=== PATIENT | female | born 1940 | race Caucasian/White ===

== ENCOUNTER → 2020-09-13 | Outpatient (CLI) | payer OTHER ==
[~2020-09-13] MED LIST: BACTROBAN NASAL1 G1 TOP; CLONIDINE1 EAC1 TD; DIGOXIN125 MCG PO; ECOTRIN81 MG PO; ELIQUIS5 MG PO; FAMOTIDINE20 MG PO; KEFLEX CAP 500500 MG PO; LEVAQUIN I500 MG/100 IV; LIPITOR80 MG PO; LISINOPRIL20 MG PO; LOPRESSOR 25 MG25 MG PO; LOPRESSOR 50 MG50 MG PO; METFORMIN HCL500 M2 PO; METOPROLOL TAR100 MG PO; ULTRAM50 MG PO; ZYVOX600 MG PO
== END ==
LOC: WCC 12:54
PROC: 0JBN0ZZ Excision of Right Lower Leg Subcutaneous Tissue and Fascia, Open Approach (ICD-10-PCS; principal; 2020-09-13)
DX: E11.622 Type 2 diabetes mellitus with other skin ulcer (principal); L97.812 Non-pressure chronic ulcer of other part of right lower leg with fat layer exposed; E11.628 Type 2 diabetes mellitus with other skin complications; L03.115 Cellulitis of right lower limb; E11.52 Type 2 diabetes mellitus with diabetic peripheral angiopathy with gangrene; I96 Gangrene, not elsewhere classified; I10 Essential (primary) hypertension; E66.01 Morbid (severe) obesity due to excess calories; I48.20 Chronic atrial fibrillation, unspecified; E11.36 Type 2 diabetes mellitus with diabetic cataract; H26.9 Unspecified cataract; J44.9 Chronic obstructive pulmonary disease, unspecified; M19.90 Unspecified osteoarthritis, unspecified site; I87.2 Venous insufficiency (chronic) (peripheral); Z68.26 Body mass index [BMI] 26.0-26.9, adult; Z79.2 Long term (current) use of antibiotics; Z79.4 Long term (current) use of insulin; Z79.899 Other long term (current) drug therapy
CPT/HCPCS: G0463

== ENCOUNTER → 2020-09-18 | Outpatient (CLI) | payer OTHER | LOC: WCC 09:00 | PROC: 0JBN0ZZ Excision of Right Lower Leg Subcutaneous Tissue and Fascia, Open Approach (ICD-10-PCS; principal; 2020-09-18) | DX: E11.628 Type 2 diabetes mellitus with other skin complications (principal); I10 Essential (primary) hypertension; L03.115 Cellulitis of right lower limb; E66.01 Morbid (severe) obesity due to excess calories; I48.20 Chronic atrial fibrillation, unspecified; I87.2 Venous insufficiency (chronic) (peripheral); Z79.4 Long term (current) use of insulin; Z79.899 Other long term (current) drug therapy; Z68.26 Body mass index [BMI] 26.0-26.9, adult ==

== ENCOUNTER → 2020-09-26 | Outpatient (CLI) | payer OTHER | LOC: WCC 10:30 | PROC: 0JBN0ZZ Excision of Right Lower Leg Subcutaneous Tissue and Fascia, Open Approach (ICD-10-PCS; principal; 2020-09-26) | DX: E11.622 Type 2 diabetes mellitus with other skin ulcer (principal); L97.812 Non-pressure chronic ulcer of other part of right lower leg with fat layer exposed; L97.829 Non-pressure chronic ulcer of other part of left lower leg with unspecified severity; E11.628 Type 2 diabetes mellitus with other skin complications; L03.115 Cellulitis of right lower limb; E11.52 Type 2 diabetes mellitus with diabetic peripheral angiopathy with gangrene; I96 Gangrene, not elsewhere classified; I10 Essential (primary) hypertension; I48.20 Chronic atrial fibrillation, unspecified; E11.36 Type 2 diabetes mellitus with diabetic cataract; H26.9 Unspecified cataract; J44.9 Chronic obstructive pulmonary disease, unspecified; M19.90 Unspecified osteoarthritis, unspecified site; I87.2 Venous insufficiency (chronic) (peripheral); E66.01 Morbid (severe) obesity due to excess calories; Z68.26 Body mass index [BMI] 26.0-26.9, adult; Z79.2 Long term (current) use of antibiotics; Z79.4 Long term (current) use of insulin; Z79.899 Other long term (current) drug therapy ==

== ENCOUNTER → 2020-10-03 | Outpatient (CLI) | payer OTHER | LOC: WCC 12:55 | DX: E11.628 Type 2 diabetes mellitus with other skin complications (principal); L03.115 Cellulitis of right lower limb; R60.0 Localized edema; I10 Essential (primary) hypertension; E66.01 Morbid (severe) obesity due to excess calories; I48.20 Chronic atrial fibrillation, unspecified; I87.2 Venous insufficiency (chronic) (peripheral); Z79.4 Long term (current) use of insulin | CPT/HCPCS: G0463 ==

== ENCOUNTER → 2020-10-23 | Outpatient (CLI) | payer OTHER | LOC: WCC 11:00 | DX: E11.628 Type 2 diabetes mellitus with other skin complications (principal); L03.115 Cellulitis of right lower limb; I10 Essential (primary) hypertension; R60.0 Localized edema; E66.01 Morbid (severe) obesity due to excess calories; I87.2 Venous insufficiency (chronic) (peripheral); Z79.4 Long term (current) use of insulin; Z68.27 Body mass index [BMI] 27.0-27.9, adult ==

== ENCOUNTER → 2020-10-31 | Outpatient (CLI) | payer OTHER | LOC: WCC 13:04 | DX: I87.2 Venous insufficiency (chronic) (peripheral) (principal); L97.922 Non-pressure chronic ulcer of unspecified part of left lower leg with fat layer exposed; E11.9 Type 2 diabetes mellitus without complications; I10 Essential (primary) hypertension; L03.116 Cellulitis of left lower limb; R60.0 Localized edema; I48.20 Chronic atrial fibrillation, unspecified; Z79.4 Long term (current) use of insulin; Z79.2 Long term (current) use of antibiotics; Z79.899 Other long term (current) drug therapy | CPT/HCPCS: 97597; 97598 ==

== ENCOUNTER → 2020-11-07 | Outpatient (CLI) | payer OTHER | LOC: WCC 13:30 | DX: E11.628 Type 2 diabetes mellitus with other skin complications (principal); I10 Essential (primary) hypertension; L03.115 Cellulitis of right lower limb; R60.0 Localized edema; E66.01 Morbid (severe) obesity due to excess calories; I48.20 Chronic atrial fibrillation, unspecified; I87.2 Venous insufficiency (chronic) (peripheral); Z79.4 Long term (current) use of insulin | CPT/HCPCS: G0463 ==

== ENCOUNTER → 2020-11-14 | Outpatient (CLI) | payer OTHER | LOC: WCC 13:00 | DX: I87.2 Venous insufficiency (chronic) (peripheral) (principal); L97.821 Non-pressure chronic ulcer of other part of left lower leg limited to breakdown of skin; E11.9 Type 2 diabetes mellitus without complications; L03.115 Cellulitis of right lower limb; I10 Essential (primary) hypertension; I48.20 Chronic atrial fibrillation, unspecified; R60.0 Localized edema; Z79.4 Long term (current) use of insulin; Z79.2 Long term (current) use of antibiotics; Z79.899 Other long term (current) drug therapy | CPT/HCPCS: 97597 ==

== ENCOUNTER → 2020-11-21 | Outpatient (CLI) | payer OTHER | LOC: WCC 13:16 | DX: E11.622 Type 2 diabetes mellitus with other skin ulcer (principal); I87.2 Venous insufficiency (chronic) (peripheral); L97.829 Non-pressure chronic ulcer of other part of left lower leg with unspecified severity; I10 Essential (primary) hypertension; L03.115 Cellulitis of right lower limb; R60.0 Localized edema; I48.20 Chronic atrial fibrillation, unspecified; J44.9 Chronic obstructive pulmonary disease, unspecified; Z79.2 Long term (current) use of antibiotics; Z79.4 Long term (current) use of insulin | CPT/HCPCS: G0463 ==

== ENCOUNTER → 2020-11-28 | Outpatient (CLI) | payer OTHER | LOC: WCC 13:30 | DX: E11.628 Type 2 diabetes mellitus with other skin complications (principal); I10 Essential (primary) hypertension; L03.115 Cellulitis of right lower limb; R60.0 Localized edema; E66.01 Morbid (severe) obesity due to excess calories; I48.20 Chronic atrial fibrillation, unspecified; I87.2 Venous insufficiency (chronic) (peripheral); Z79.4 Long term (current) use of insulin | CPT/HCPCS: 87070; 87077; 87186; 87205; 97597; 97598 ==

== ENCOUNTER → 2020-12-11 | Outpatient (CLI) | payer OTHER | LOC: WCC 09:30 | DX: E11.622 Type 2 diabetes mellitus with other skin ulcer (principal); I87.2 Venous insufficiency (chronic) (peripheral); L97.821 Non-pressure chronic ulcer of other part of left lower leg limited to breakdown of skin; I10 Essential (primary) hypertension; L03.115 Cellulitis of right lower limb; R60.0 Localized edema; I48.20 Chronic atrial fibrillation, unspecified; Z79.2 Long term (current) use of antibiotics; Z79.4 Long term (current) use of insulin; Z79.899 Other long term (current) drug therapy | CPT/HCPCS: 97597 ==

== ENCOUNTER 2020-12-18 18:59 | Emergency (ER) | payer OTHER ==
[~2020-12-18 18:59] MED LIST changes: -CLONIDINE1 EAC1 TD; -DIGOXIN125 MCG PO; -ECOTRIN81 MG PO; -ELIQUIS5 MG PO; -FAMOTIDINE20 MG PO; -LEVAQUIN I500 MG/100 IV; -LIPITOR80 MG PO; -LISINOPRIL20 MG PO; -LOPRESSOR 25 MG25 MG PO; -LOPRESSOR 50 MG50 MG PO; -METFORMIN HCL500 M2 PO; -METOPROLOL TAR100 MG PO; -ULTRAM50 MG PO; -ZYVOX600 MG PO
[2020-12-18 19:36] LABS: HEMOGLOBIN 13.7 gm/dl (12.3-15.3); RED BLOOD COUNT 5.05 M/UL (4.00-5.10); WHITE BLOOD COUNT 5.6 K/UL (4.5-11.0)
== END 2020-12-19 08:11 | disposition short-term general hospital (02) ==
LOC: ER1 18:59
PROVIDERS: Family Medicine
DX: U07.1 COVID-19 (principal); R00.0 Tachycardia, unspecified; Z79.01 Long term (current) use of anticoagulants; E11.9 Type 2 diabetes mellitus without complications; N17.9 Acute kidney failure, unspecified; I95.9 Hypotension, unspecified; E87.5 Hyperkalemia
CPT/HCPCS: 51702; 71045; 80048; 80053; 81001; 82962; 83605; 83690; 85025; 86850; 86900; 86901; 87040; 93005; 96365; 96375; 99285; J1335; J2405; U0002

== ENCOUNTER 2021-01-10 21:13 | Inpatient (IN) | payer OTHER ==
[~2021-01-10] VITALS: Ht 165.1 cm; Wt 65.5 kg
[2021-01-10 21:52] LABS: HEMOGLOBIN 12.2 gm/dl (12.3-15.3); RED BLOOD COUNT 4.28 M/UL (4.00-5.10); WHITE BLOOD COUNT 7.9 K/UL (4.5-11.0)
[2021-01-11] MEDS ORDERED: CLONIDINE1 EAC1 TD (04:57)
[2021-01-11] MEDS ORDERED: FAMOTIDINE20 MG PO (04:57)
[2021-01-11] MEDS ORDERED: ELIQUIS5 MG PO (04:58)
[2021-01-11] MEDS ORDERED: LIPITOR80 MG PO (04:58)
[2021-01-11] MEDS ORDERED: ULTRAM50 MG PO (05:00)
[2021-01-11] MEDS ORDERED: METOPROLOL TAR100 MG PO (05:00)
[2021-01-11] MEDS ORDERED: METFORMIN HCL500 M2 PO (05:03)
[2021-01-12 03:34] LABS: HEMOGLOBIN 10.7 gm/dl (12.3-15.3)
[2021-01-12 03:42] LABS: RED BLOOD COUNT 3.84 M/UL (4.00-5.10); WHITE BLOOD COUNT 5.5 K/UL (4.5-11.0)
--- NOTE | 2021-01-16 21:28 | NUR ---
DAUGHTER NOTIFIED OF TRANSFER TO PCU
[2021-01-16] MEDS ORDERED: LISINOPRIL20 MG PO (22:02)
[2021-01-17 02:47] LABS: HEMOGLOBIN 10.7 gm/dl (12.3-15.3); RED BLOOD COUNT 3.9 M/UL (4.00-5.10); WHITE BLOOD COUNT 5.5 K/UL (4.5-11.0)
--- NOTE | 2021-01-19 16:06 | NUR ---
PATIENT REFUSES TO LET NURSES ASSESS IMELDA LEGS PER DAUGHTERS REQUEST. PATIENT STATES "DON'T GET ME UPSET." DRESSINGS NOTED TO BE CLEAN, DRY, AND INTACT WITH NO DRAINAGE NOTED.
[2021-01-21] MEDS ORDERED: LOPRESSOR 25 MG25 MG PO (15:44)
[2021-01-21] MEDS ORDERED: DIGOXIN125 MCG PO (15:44)
[2021-01-23 06:39] LABS: RED BLOOD COUNT 3.93 M/UL (4.00-5.10); WHITE BLOOD COUNT 6.7 K/UL (4.5-11.0)
[2021-01-24 03:16] LABS: HEMOGLOBIN 11.2 gm/dl (12.3-15.3); RED BLOOD COUNT 3.99 M/UL (4.00-5.10); WHITE BLOOD COUNT 10.4 K/UL (4.5-11.0)
--- NOTE | 2021-01-24 03:44 | NUR ---
0115 PATIENT'S DAUGHTER CALLED UPSET STATING THAT HER MOTHER WAS NOT RECEIVING LISINOPRIL 20MG. MD CALLED PER DAUGHTERS REQUEST. MD STATED LISINOPRIL WAS NOT NEEDED AT THIS TIME. DAUGHTER WAS ALSO UPSET BECAUSE SHE THINKS BILATERAL LEGS DRESSINGS ARE NOT BEING CHANGED AND ASKED TO SPEAK TO NURSING RHINOLOGIST. NURSING RHINOLOGIST NOTIFIED AND SPOKE TO DAUGHTER. NO DRESSING CHANGE ORDERS IN COMPUTER. I CHANGED ALL DRESSINGS ON BILATERAL LEGS AND COCCYX. MD NOTIFIED TO EVAL PT BUT MD REFUSED TO COME TO FLOOR FOR WOUND EVAL TO BILAT LEGS. DAUGHTER INSINUATED THAT CLONIDINE PATCH WAS NOT IN USE, BUT CLONIDINE PATCH DATED/TIMED FOR 01/18/21 AT 2115 ON CARLEEN AT TIME OF PHONE CALL WITH DAUGHTER. BAR USEFUL OR BUSSER MADE AWARE OF ENTIRE SITUATION. DEMARCO
[2021-01-25 05:59] LABS: HEMOGLOBIN 11.2 gm/dl (12.3-15.3); WHITE BLOOD COUNT 10.6 K/UL (4.5-11.0)
[2021-01-25] MEDS ORDERED: LOPRESSOR 50 MG50 MG PO (13:33)
[2021-01-25] MEDS ORDERED: LISINOPRIL20 MG PO (13:33)
[2021-01-26 05:36] LABS: HEMOGLOBIN 10.1 gm/dl (12.3-15.3); RED BLOOD COUNT 3.7 M/UL (4.00-5.10); WHITE BLOOD COUNT 9.3 K/UL (4.5-11.0)
[2021-01-28 05:29] LABS: HEMOGLOBIN 11.2 gm/dl (12.3-15.3); RED BLOOD COUNT 4.04 M/UL (4.00-5.10); WHITE BLOOD COUNT 8.3 K/UL (4.5-11.0)
[2021-01-28] MEDS ORDERED: ECOTRIN81 MG PO (11:18)
[2021-01-28] MEDS ORDERED: LEVAQUIN I500 MG/100 IV (11:21)
[2021-01-28] MEDS ORDERED: ZYVOX600 MG PO (11:22)
--- NOTE | 2021-01-28 15:14 | NUR ---
01/28/21 5608 REPORT CALLED TO EUGENE AT [facility] [phone]
--- NOTE | 2021-01-28 15:14 | NUR ---
01/28/21 1345 [facility] NOTIFIED OF NEED FOR TRANSPORT
[2021-01-29] MEDS ORDERED: ZYVOX600 MG PO (11:51)
--- NOTE | 2021-01-29 12:59 | NUR ---
01/29/21 1300 REPORT CALLED TO EUGENE AT [facility] AND [facility] AT [facility]
== END 2021-01-29 13:54 | DRG 308 ==
LOC: ER1 21:13 → PROG CARE 01-11 05:12 → MED SURG 4 01-11 05:12 → PROG CARE 01-11 05:12 → CDU 01-11 05:12 → PROG CARE 01-11 07:35 → MED SURG 4 01-12 23:11 → PROG CARE 01-16 19:57 → M/S 01-16 19:57 → PROG CARE 01-16 21:02 → M/S 01-19 17:00
PROVIDERS: Emergency Medicine; Family Medicine; Internal Medicine; ADMIT Internal Medicine
PROC: 8E0ZXY6 Isolation (ICD-10-PCS; principal; 2021-01-16)
DX: I48.91 Unspecified atrial fibrillation (principal); J96.01 Acute respiratory failure with hypoxia; J18.9 Pneumonia, unspecified organism; E11.52 Type 2 diabetes mellitus with diabetic peripheral angiopathy with gangrene; M86.8X7 Other osteomyelitis, ankle and foot; N30.00 Acute cystitis without hematuria; E87.2 Acidosis; I96 Gangrene, not elsewhere classified; L97.425 Non-pressure chronic ulcer of left heel and midfoot with muscle involvement without evidence of necrosis; L97.419 Non-pressure chronic ulcer of right heel and midfoot with unspecified severity; E11.69 Type 2 diabetes mellitus with other specified complication; I27.20 Pulmonary hypertension, unspecified; R53.81 Other malaise; D53.9 Nutritional anemia, unspecified; R53.1 Weakness; E86.0 Dehydration; R82.90 Unspecified abnormal findings in urine; E88.09 Other disorders of plasma-protein metabolism, not elsewhere classified; E87.6 Hypokalemia; I95.9 Hypotension, unspecified; I12.9 Hypertensive chronic kidney disease with stage 1 through stage 4 chronic kidney disease, or unspecified chronic kidney disease; N18.30 Chronic kidney disease, stage 3 unspecified; E11.22 Type 2 diabetes mellitus with diabetic chronic kidney disease; F03.90 Unspecified dementia, unspecified severity, without behavioral disturbance, psychotic disturbance, mood disturbance, and anxiety; Z86.16 Personal history of COVID-19; Z79.4 Long term (current) use of insulin; Z79.01 Long term (current) use of anticoagulants; Z90.710 Acquired absence of both cervix and uterus; Z80.9 Family history of malignant neoplasm, unspecified
CPT/HCPCS: ECHO; 36415; 71045; 71250; 73522; 73721; 80048; 80053; 81001; 82550; 82553; 82962; 83036; 83605; 83690; 83735; 83880; 84132; 84439; 84443; 84484; 85025; 85027; 86140; 87040; 93005; 93306; 93925; 96374; 96375; 96376; 97110; 97110-GP-CQ; 97116-GP-CQ; 97163; 97164; 97166; 97168; 97530-GP-CQ; 99285; A6212; G0378; J0456; J0696; J1160; J1956; J3475; J3480; J7030; J7050; U0002